=== PATIENT | female | born 1950 | race Caucasian/White ===

== ENCOUNTER → 2024-08-20 | Outpatient (CLI) | payer MEDICARE ==
[2024-08-20 14:22] VITALS: BP 122/70; PULSE 64; RESP 12; TEMP 98.2
--- NOTE | 2024-08-20 14:52 | P.SLEEP ---
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 The patient is coming in due to concerns of sleep apnea. The patient has been feeling fatigued and sleepy during the day. The patient was given a trial of Atomoxetine by the primary care and this medication made her quite shaky and this was stopped due to side effects. She has history of loud snoring. Snoring is worse whenever she lays down on her back. She goes to bed between 10 PM and midnight and she wakes up at 7:30 AM in the morning and sometimes she gets up at 9 AM. She is averaging about 8 to 9 hours of sleep. She wakes up with a dry mouth. She is still prefers to sleep on her side however ongoing shoulder pain, she sleeping on her back. The patient has history of hypertension and hyperlipidemia. She also has had a problem with her masseter muscle on the right. She describes what seems to be a masseter muscle spasm to the point where the patient was unable to open up her mouth. She underwent tendon release and to this date, she has incomplete opening of her mouth. She also reported TMJ on her left. The patient denies gaining weight over the years. Her weight has remained stable. He drinks caffeinated beverages, no alcohol, no substance abuse, no head trauma. She still with some chronic anxiety/depression maintained on citalopram. She also has hypertension and hyperlipidemia. No sleep paralysis. No hallucinations. No cataplexy. No restlessness in the lower extremities. No history of any motor vehicle accidents because of feeling drowsy or sleepy. Sleep study was done on her at [facility] many years back and the results are not available at this point. Review of Systems Constitutional: Reports daytime sleepiness, Reports fatigue Eyes: denies as per HPI, denies blurred vision, denies bulging eye, denies decreased vision, denies diplopia, denies discharge, denies dry eye, denies irritation, denies itching, denies pain, denies photophobia, denies loss of peripheral vision, denies loss of vision, denies tunnel vision/blind spots Ears: deny: decreased hearing, ear discharge, earache, tinnitus Ears, nose, mouth and throat: Reports as per HPI Breasts: absent: as per HPI, change in shape, gynecomastia, masses, nipple discharge, pain, skin changes, swelling Cardiovascular: Reports as per HPI Respiratory: Reports snoring Gastrointestinal: Reports as per HPI Genitourinary: Reports as per HPI Menstruation: Reports as per HPI Musculoskeletal: Reports as per HPI Musculoskeletal: absent: ankle pain, ankle stiffness, ankle swelling, as per HPI, elbow pain, elbow stiffness, elbow swelling, foot pain, foot stiffness, foot swelling, hand pain, hand stiffness, hand swelling, hip pain, hip stiffness, hip swelling, knee pain, knee stiffness, knee swelling, shoulder pain, shoulder stiffness, shoulder swelling, wrist pain, wrist stiffness, wrist swelling Integumentary: Reports as per HPI Neurological: Reports as per HPI Psychiatric: Reports change in sleep habits, Reports hypersomnia, Reports sleep disturbances Endocrine: Reports as per HPI, Reports fatigue Hematologic/Lymphatic: Reports as per HPI Allergic/Immunologic: Reports as per HPI Past Medical History Past Medical History: Hypertension, Thyroid Disorder History of Any Multi-Drug Resistant Organisms: None Reported Additional Past Surgical History / Comment(s): t&a, SHIRAZ TYMPANOPLASTY, D&C, ORAL TENDON RELEASE Past Anesthesia/Blood Transfusion Reactions: Motion Sickness Past Psychological History: No Psychological Hx Reported Smoking Status: Never smoker Past Alcohol Use History: Rare Past Drug Use History: None Reported Medications and Allergies Home Medications Medication Instructions Recorded Confirmed Type Atorvastatin [Lipitor] 20 mg PO HS 08/20/24 08/20/24 History Citalopram Hydrobromide 10 mg PO DAILY 08/20/24 08/20/24 History [Citalopram HBr] Metoprolol Succinate (ER) [Toprol 25 mg PO DAILY 08/20/24 08/20/24 History Xl] Omeprazole [PriLOSEC] 20 mg PO AC-BRKFST 08/20/24 08/20/24 History amLODIPine BESYLATE/BENAZEPRIL 1 cap PO 08/20/24 History [amLODIPine BESYLATE/BENAZEPRIL 10-20 mg] Physical Exam Vitals: Vital Signs Temp Pulse Resp BP Pulse Ox 08/20/24 14:21 98.2 F 64 12 122/70 97 Intake and Output 08/19/24 08/20/24 08/20/24 22:59 06:59 14:59 Other: Weight 55.338 kg The patient appeared well nourished and normally developed. Vital signs as documented. The patient carries a body mass index of 22.8. [place] score is at 11. Head exam is unremarkable. No scleral icterus or corneal arcus noted. Neck is without jugular venous distension, thyromegaly, or carotid bruits. Carotid upstrokes are brisk bilaterally. The patient has an overbite and significant crowding of posterior pharynx. Her jaws bilaterally are asymmetric and she has incomplete ability to open up her mouth. Lungs are clear to auscultation and percussion. Cardiac exam reveals the PMI to be normally sized and situated. Rhythm is regular. First and second heart sounds normal. No murmurs, rubs or gallops. Abdominal exam reveals normal bowel sounds, no masses, no organomegaly and no aortic enlargement. Extremities are nonedematous and both femoral and pedal pulses are normal. Examination of the skin revealed no evidence of significant rashes, suspicious appearing nevi or other concerning lesions. Neurologically, the patient is awake and alert and the patient does not have any focal neurological deficit. Cranial nerves are essentially intact. Assessment and Plan Plan: Chronic hypersomnia and sleepiness with an [place] score of 11. There is concern for this patient having obstructive sleep apnea. Note that the patient is not obese. However, she has an overbite with significant crowding of posterior pharynx. Her lower jaw/mandible is more asymmetric and the patient gives a history of a masseter muscle spasm for which she has undergone tendon release many years back. 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 As such, there is significant anatomic compromise and narrowing in her posterior pharynx with a Mallampati class IV. This may be a risk factor for underlying obstructive sleep apnea. Hearing loss, bilaterally the patient is wearing hearing aids History of masseter muscle spasm with subsequent tendon release Left TMJ Chronic anxiety/depression Hypertension Hyperlipidemia Plan Will proceed with a screening polysomnography to evaluate this patient for obstructive sleep apnea. The patient is open to utilize CPAP therapy if significant sleep breathing disorder is identified. Maintain good sleep hygiene measures. Maintain regular sleep schedule. Will continue to follow. Time with Patient: Greater than 30 Sleep Note - Sleep Data ESS Total: 11 - Sleep Note Sleep Note: Temperature: 98.2 F Pulse Rate: 64 Respiratory Rate: 12 Blood Pressure: 122/70 SpO2: 97 Height: 5 ft 1.5 in Weight: 55.338 kg BMI: Neck Circumference: 13.2
== END ==
LOC: 3 N SLEEP 13:27
PROVIDERS: ATTEND Internal Medicine Critical Care Medicine
DX: G47.33 Obstructive sleep apnea (adult) (pediatric) (principal); M26.602 Left temporomandibular joint disorder, unspecified; F41.9 Anxiety disorder, unspecified; F32.A Depression, unspecified; I10 Essential (primary) hypertension; E78.5 Hyperlipidemia, unspecified
CPT/HCPCS: 99211

== ENCOUNTER 2024-10-06 19:42 | Outpatient (CLI) | payer MEDICARE ==
--- NOTE | 2024-10-08 18:43 | P.PCN ---
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 The patient is coming in due to concerns of sleep apnea. The patient has been feeling fatigued and sleepy during the day. The patient was given a trial of Atomoxetine by the primary care and this medication made her quite shaky and this was stopped due to side effects. She has history of loud snoring. Snoring is worse whenever she lays down on her back. She goes to bed between 10 PM and midnight and she wakes up at 7:30 AM in the morning and sometimes she gets up at 9 AM. She is averaging about 8 to 9 hours of sleep. She wakes up with a dry mouth. She is still prefers to sleep on her side however ongoing shoulder pain, she sleeping on her back. The patient has history of hypertension and hyperlipidemia. She also has had a problem with her masseter muscle on the right. She describes what seems to be a masseter muscle spasm to the point where the patient was unable to open up her mouth. She underwent tendon release and to this date, she has incomplete opening of her mouth. She also reported TMJ on her left. The patient denies gaining weight over the years. Her weight has remained stable. He drinks caffeinated beverages, no alcohol, no substance abuse, no head trauma. She still with some chronic anxiety/depression maintained on citalopram. She also has hypertension and hyperlipidemia. No sleep paralysis. No hallucinations. No cataplexy. No restlessness in the lower extremities. No history of any motor vehicle accidents because of feeling drowsy or sleepy. Sleep study was done on her at [facility] many years back and the results are not available at this point. Pertinent physical findings The patient's weight is 122 pounds with a BMI of 22.7 Technical description The patient was studied using a standard complex polysomnography protocol that included recording of the Lead II EKG, Central, occipital and frontal EEG, right and left outer canthus EOG, submental EMG, right and left anterior tibialis EMG, respiratory airflow by thermocouple and or pressure/flow transducer, respiratory efforts by abdominal and thoracic PVDF belts, oxygen saturation by cable oximetry. Position by observation synchronized the PSG. Equipment used: Glio. Sleep architecture The total recording duration was 393 minutes. The total sleep time was 344.5 minutes. The overall sleep efficiency was 87.7%. The wake after sleep onset time was 33 minutes. Latency to sleep onset was 15.5 minutes. Latency to REM sleep was 295 minutes. The sleep architecture was characterized by 7.4% stage I, 79.1% stage II, 10.2% stage III and a total of 3.3% REM sleep. The total arousal index was 25.6. Respiratory analysis The patient had a total of 95 obstructive events of which 27 with obstructive apneas, 0 were mixed apneas and 68 were obstructive hypopneas. The resulting AHI was 15.5. The patient had no central apneas identified. The disease was worse during REM sleep and while being in the supine body position with an AHI of 40. Oxygenation analysis The patient's baseline pulse ox was 93% while awake. Lowest oxygen saturation was 83%. The patient spent approximately 7 minutes of the sleep time below p ulse ox of 89% and this accounted for 1.8% of the overall recording duration. Cardiac summary The average heart rate was 61 with a minimum heart rate of 58 and a maximal heart rate of 63 Limb movements The patient had a total of 43 periodic limb movement activity with an index of 7.5. There were only 4 periodic limb movements with arousals with an index of 0.7. Arousal events A total of 147 arousal were counted with an arousal index of 25.6. The respiratory arousal index was 9.1. Assessment Obstructive sleep apnea, mild in severity with an AHI of 15.5, worse during REM and worse in the supine body position. Note that the patient is not obese. However, she has an overbite with significant crowding of posterior pharynx. Her lower jaw/mandible is more asymmetric and the patient gives a history of a masseter muscle spasm for which she has undergone tendon release many years back. 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 As such, there is significant anatomic compromise and narrowing in her posterior pharynx with a Mallampati class IV. Chronic hypersomnia and sleepiness with an [place] score of 11. Hearing loss, bilaterally the patient is wearing hearing aids History of masseter muscle spasm with subsequent tendon release Left TMJ Chronic anxiety/depression Hypertension Hyperlipidemia Plan Will proceed with CPAP therapy. The patient would be asked to come into the sleep center to undergo a CPAP titration.
== END 2024-10-07 07:26 | disposition home or self-care (01) ==
LOC: 3 N SLEEP 19:42
PROVIDERS: ATTEND Internal Medicine Critical Care Medicine
DX: G47.33 Obstructive sleep apnea (adult) (pediatric) (principal); H91.93 Unspecified hearing loss, bilateral; M26.602 Left temporomandibular joint disorder, unspecified; F41.9 Anxiety disorder, unspecified; F32.A Depression, unspecified; I10 Essential (primary) hypertension; E78.5 Hyperlipidemia, unspecified; Z87.39 Personal history of other diseases of the musculoskeletal system and connective tissue
CPT/HCPCS: 95810